=== PATIENT | female | born 1975 | race Caucasian/White ===

== ENCOUNTER 2023-06-07 08:24 | Emergency (ER) | payer BC, SELFPAY ==
--- NOTE | ~2023-06-07 | CT_ITS ---
EXAMINATION: CT abdomen pelvis wo con DATE: 06/07/2023 09:11 INDICATION: Hematuria. Right flank pain. TECHNIQUE: Computed tomography (CT) of the abdomen and pelvis was performed without intravenous contr ast. The dose-length product was 573.37 mGy-cm. Automated exposure control and iterative reconstructi on technique were employed. COMPARISON: None. FINDINGS: Lung bases are unremarkable. Heart size normal. No significant pleural or pericardial effus ion. 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 Gallbladder is mildly distended. The spleen, pancreas, ad renal glands are unremarkable. There is a 3-4 mm distal right ureteral stone, image 150. Mild hydrone phrosis. The spleen, pancreas is unremarkable. Left kidney is unremarkable. Nonobstructive bowel aura pierre. No acute osseous abnormality. There is mild bilateral asymmetric sacroiliitis. No acute osseous abnormality. IMPRESSION: 1. Distal right ureteral stone just proximal to the UVJ measuring 3-4 mm. Mild hydronephrosis. Reviewed, dictated and finalized at location A.
--- NOTE | ~2023-06-07 | XR_ITS ---
Supine and upright views of the abdomen Clinical history: Urolithiasis Findings: Bowel gas pattern is nonspecific. No evidence for obstruction or free air. Questionable fina nt visualization of 3 mm distal right ureteral stone, adjacent to a calcified pelvic phlebolith. Osse ous structures are intact. Impression: Questionable faint visualization of 3 mm distal right ureteral stone, adjacent to calcified pelvic ph lebolith. Reviewed, dictated and finalized at location . Impression: Questionable faint visualization of 3 mm distal right ureteral stone, adjacent to calcified pelvic phlebolith.
[2023-06-07 08:25] VITALS: BP 134/76; PULSE 98; RESP 20; TEMP 36.6; O2SAT 100
[2023-06-07 08:47] LABS: Basophils Absolute Auto 0.1 K/mm3 (0.0-0.1); Basophils Percent Auto 0.7 % (0.2-1.2); Eosinophils Absolute Auto 0.1 K/mm3 (0-0.3); Eosinophils Percent Auto 1.3 % (0-4.4); Hematocrit 40.7 % (37.0-47.0); Hemoglobin 12.7 g/dL (12.0-15.0); Immature Granulocyte Absolute 0.04 K/mm3 (0.00-0.031); Immature Granulocyte Percent A 0.6 % (0-0.5); Lymphocytes Absolute Auto 2.09 K/mm3 (0.9-3.2); Lymphocytes Percent Auto 29.6 % (18.3-44.2); Mean Corpuscular HGB Conc 31.2 g/dl (32-36); Mean Corpuscular Hemoglobin 27.7 pg (26-34); Mean Corpuscular Volume 88.9 fl (80-100); Mean Platelet Volume 9.1 fl (7.4-10.4); Monocytes Absolute Auto 0.4 K/mm3 (0.1-0.6); Monocytes Percent Auto 5.1 % (2.6-8.5); Neutrophils Absolute Auto 4.4 K/mm3 (1.3-6.7); Neutrophils Percent Auto 62.7 % (45.5-73.1); Platelet Count Result 315 k/mm3 (150-375); Red Blood Count 4.58 M/mm3 (4.2-5.4); Red Cell Distribution Width 13.2 % (11.5-14.5); White Blood Count 7.1 K/mm3 (4.5-10.0)
--- NOTE | 2023-06-07 08:50 | ED.BACK ---
HPI - Back Pain/Injury General Chief Complaint: Back Pain/Injury Stated Complaint: R flank pain Time Seen by Provider: 06/07/23 08:43 History of Present Illness HPI Narrative: 48-year-old female history of uterine fibroids presents to the emergency room with sudden onset of right lower back pain. States pain was present when she woke this morning. Denies any known injury or trauma. She states the pain is worse with certain movements. Took an ibuprofen with minimal pain relief. Patient denies any radiating pain, dysuria, nausea vomiting. Related Data Allergies Allergy/AdvReac Type Severity Reaction Status Date / Time No Known Allergies Allergy Verified 06/07/23 08:42 Review of Systems Review of Systems: CONSTITUTIONAL: Denies fever, chills, or sweats. EYES: Denies visual changes, redness, or discharge. ENT: Denies rhinorrhea, congestion, sore throat, or otalgia. CARDIOVASCULAR: Denies chest pain, palpitations, or edema. RESPIRATORY: Denies cough or dyspnea. GASTROINTESTINAL: Denies abdominal pain, nausea, vomiting, or diarrhea. GENITOURINARY: Denies dysuria or hematuria. SKIN: Denies rash or itching. MUSCULOSKELETAL: Per HPI NEUROLOGIC: Denies headache, numbness, dizziness, or weakness. PSYCHIATRIC: Denies anxiety or depression. Exam Narrative: GENERAL: Well-appearing, well-nourished, no physical limitations, and in no acute distress. HEAD: Normocephalic, atraumatic. EYES: Conjunctivae normal, PERRLA and EOMI. CHEST: Clear to auscultation. No respiratory distress. No wheezes rales or rhonchi. HEART: Regular rate and rhythm. No murmur heard. Normal peripheral pulses. ABDOMEN: Soft, nontender, nondistended, normal active bowel sounds. BACK: No CVA tenderness; No midline lumbar tenderness, step-offs, bony abnormality; FROM, - SLE bilaterally EXTREMITIES: Normal range of motion. No edema. No clubbing or cyanosis SKIN: Warm, dry, no rash. No noted wounds NEURO: No focal deficits. Alert and oriented x3. MAEW. CN's II-XI intact bilaterally, normal gait PSYCH: Cooperative. Normal mood and affect. Course Vital Signs Vital signs: Vital Signs Temperature 36.6 C 06/07/23 08:25 Pulse Rate 98 06/07/23 08:25 Respiratory Rate 20 06/07/23 08:25 Blood Pressure 134/76 06/07/23 08:25 Pulse Oximetry 100 06/07/23 08:25 Oxygen Delivery Room Air 06/07/23 08:25 Temperature 36.6 C 06/07/23 08:25 Pulse Rate 98 06/07/23 08:25 Respiratory Rate 20 06/07/23 08:25 Blood Pressure 134/76 06/07/23 08:25 Pulse Oximetry 100 06/07/23 08:25 Oxygen Delivery Room Air 06/07/23 08:25 MDM - Back Pain/Injury Lab Data 06/07/23 08:39 06/07/23 08:39 Labs: Lab Results 06/07/23 Range/Units 08:39 WBC 7.1 (4.5-10.0) K/mm3 RBC 4.58 (4.2-5.4) M/mm3 Hgb 12.7 (12.0-15.0) g/dL Hct 40.7 (37.0-47.0) % MCV 88.9 (80-100) fl MCH 27.7 (26-34) pg MCHC 31.2 L (32-36) g/dl RDW 13.2 (11.5-14.5) % Plt Count 315 (150-375) k/mm3 MPV 9.1 (7.4-10.4) fl Immature Gran % (Auto) 0.6 H (0-0.5) % Neut % (Auto) 62.7 (45.5-73.1) % Lymph % (Auto) 29.6 (18.3-44.2) % [place] % (Auto) 5.1 (2.6-8.5) % Eos % (Auto) 1.3 (0-4.4) % Baso % (Auto) 0.7 (0.2-1.2) % Lymph # (Auto) 2.09 (0.9-3.2) K/mm3 [place] # (Auto) 0.4 (0.1-0.6) K/mm3 Eos # (Auto) 0.1 (0-0.3) K/mm3 Baso # (Auto) 0.1 (0.0-0.1) K/mm3 Abs Immat Gran (auto) 0.04 H (0.00-0.031) K/mm3 Absolute Neuts (auto) 4.4 (1.3-6.7) K/mm3 Absolute Nucleated RBC 0.000 (0.0-0.012) K/mm3 Nucleated RBC % 0.0 (0.0-0.2) % Sodium 140 (137-145) mmol/L Potassium 3.6 (3.4-5.0) mmol/L Chloride 107 (98-107) mmol/L Carbon Dioxide 26 (22-30) mmol/L Anion Gap 7 (4-12) mmol/L BUN 19 H (7-17) mg/dL Creatinine 0.80 (0.7-1.0) mg/dL Estim Creat Clear Calc 72 ml/min Estimated GFR > 60 (59 - ) Glucose 123 H (65-110) mg/dL Calcium 9.5 (8.4-10.2) mg/dL Total Bilirubin 0.
[2023-06-07 08:55] LABS: Appearance Urine Cloudy (Clear); Bacteria Urine Rare /hpf; Bilirubin Urine Negative (Negative); Blood Urine 1+ (Negative); Color Urine Yellow (Yellow); Glucose Urine UA Negative (Negative); Ketones Urine Negative (Negative); Leukocyte Esterase Ur Negative LEU/UL (Negative); Nitrate Urine Negative (Negative); Non Pathogenic Casts 0-2; Protein Urine Negative (Negative); Squamous Epithelial Cell Urine Moderate /hpf (Few); Urobilinogen Urine 0.2 mg/dL (<2.0); WBC Urine 0-5 /hpf (0-3); pH Urine 5.5 (5.0-9.0)
[2023-06-07 08:56] LABS: Add Urine Microscopic? YES; Specific Grav Ur 1.031 (1.001-1.035)
[2023-06-07 09:07] LABS: Alanine Aminotransferase 15 U/L (6-35); Albumin Level 4.7 g/dL (3.5-5.1); Alkaline Phosphatase 66 U/L (38-126); Anion Gap 7 mmol/L (4-12); Aspartate Amino Transferase 24 U/L (14-36); Bilirubin,Total 0.6 mg/dL (0.2-1.3); Blood Urea Nitrogen 19 mg/dL (7-17); Calcium 9.5 mg/dL (8.4-10.2); Carbon Dioxide 26 mmol/L (22-30); Chloride 107 mmol/L (98-107); Estimated CRCL calculation 72 ml/min; Estimated Glomerular Filt Rate > 60; Glucose 123 mg/dL (65-110); Potassium 3.6 mmol/L (3.4-5.0); Sodium 140 mmol/L (137-145)
[2023-06-07] MEDS: KETOROLAC 30 MG/ML VIAL (*BKC) IV PUSH (09:53)
[2023-06-07] MEDS: SODIUM CHLORIDE 0.9% IV 1,000 ML 999 ML IV CONT (09:54)
== END 2023-06-07 11:45 | disposition home or self-care (01) ==
PROVIDERS: Emergency Medicine; Emergency Provider Nurse Practitioner Family; Referring Provider Emergency Medicine
DX: N13.2 Hydronephrosis with renal and ureteral calculous obstruction (principal)
CPT/HCPCS: 36415; 74018; 74176; 80053; 81001; 81025; 85025; 96361; 96374; 99284; J1885; J7030

== ENCOUNTER 2023-06-08 21:40 | Emergency (ER) | payer BC, SELFPAY ==
--- NOTE | ~2023-06-08 | CT_ITS ---
EXAMINATION: CT abdomen pelvis wo con DATE: 06/08/2023 22:51 INDICATION: Flank pain. TECHNIQUE: Computed tomography (CT) of the abdomen and pelvis was performed without intravenous contr ast. Automated exposure control and iterative reconstruction technique were employed. The dose-length product was 515.75 mGy-cm. COMPARISON: CT abdomen and pelvis 06/07/23 FINDINGS: The visualized portions of the lung bases demonstrate minimal atelectasis. No pleural effus ion. The heart size is normal. No pericardial effusion. There is a 16 mm mass of fat in the liver, li juancarlos a lipoma. The gallbladder, spleen, pancreas, adrenal glands, and left kidney are normal. There i s mild right hydronephrosis. There is a 3 mm stone in distal right ureter. There are no dilated loops of bowel. The appendix is normal. There are no pathologically enlarged lymph nodes. There is no free intraperitoneal fluid. There is mild thoracic and lumbar spondylosis. IMPRESSION: 1. 3 mm stone in distal right ureter with mild right hydronephrosis. Reviewed, dictated and finalized at location E.
[2023-06-08 21:55] VITALS: BP 145/76; PULSE 112; RESP 18; TEMP 36.4; O2SAT 99
[2023-06-08 22:28] LABS: Basophils Percent Auto 0.4 % (0.2-1.2); Eosinophils Absolute Auto 0.1 K/mm3 (0-0.3); Hematocrit 36.9 % (37.0-47.0); Hemoglobin 11.8 g/dL (12.0-15.0); Immature Granulocyte Absolute 0.03 K/mm3 (0.00-0.031); Immature Granulocyte Percent A 0.3 % (0-0.5); Lymphocytes Absolute Auto 1.95 K/mm3 (0.9-3.2); Lymphocytes Percent Auto 21.5 % (18.3-44.2); Mean Corpuscular Hemoglobin 27.9 pg (26-34); Mean Corpuscular Volume 87.2 fl (80-100); Mean Platelet Volume 9.1 fl (7.4-10.4); Monocytes Absolute Auto 0.5 K/mm3 (0.1-0.6); Monocytes Percent Auto 5.5 % (2.6-8.5); Neutrophils Absolute Auto 6.5 K/mm3 (1.3-6.7); Neutrophils Percent Auto 71.3 % (45.5-73.1); Platelet Count Result 277 k/mm3 (150-375); Red Blood Count 4.23 M/mm3 (4.2-5.4); Red Cell Distribution Width 13.3 % (11.5-14.5); White Blood Count 9.1 K/mm3 (4.5-10.0)
[2023-06-08 22:30] LABS: Appearance Urine Clear (Clear); Bilirubin Urine Negative (Negative); Blood Urine Negative (Negative); Color Urine Yellow (Yellow); Glucose Urine UA Negative (Negative); Ketones Urine Negative (Negative); Leukocyte Esterase Ur Negative LEU/UL (Negative); Nitrate Urine Negative (Negative); Protein Urine Negative (Negative); Specific Grav Ur 1.015 (1.001-1.035); Urobilinogen Urine 0.2 mg/dL (<2.0)
[2023-06-08 22:33] LABS: Add Urine Microscopic? NO
[2023-06-08 22:40] LABS: Alanine Aminotransferase 14 U/L (6-35); Albumin Level 4.3 g/dL (3.5-5.1); Alkaline Phosphatase 60 U/L (38-126); Anion Gap 6 mmol/L (4-12); Aspartate Amino Transferase 21 U/L (14-36); Bilirubin,Total 0.6 mg/dL (0.2-1.3); Blood Urea Nitrogen 16 mg/dL (7-17); Calcium 9.2 mg/dL (8.4-10.2); Carbon Dioxide 27 mmol/L (22-30); Chloride 102 mmol/L (98-107); Estimated CRCL calculation 49 ml/min; Estimated Glomerular Filt Rate 44; Glucose 122 mg/dL (65-110); Potassium 3.6 mmol/L (3.4-5.0); Sodium 135 mmol/L (137-145)
--- NOTE | 2023-06-08 23:26 | ED_ITS ---
HPI - Female Genitourinary General Chief complaint: Urogenital-Female Stated complaint: flank pain Time Seen by Provider: 06/08/23 22:14 Source: patient and old records reviewed Mode of arrival: ambulatory Limitations: no limitations History of Present Illness HPI Narrative: Patient is a 48-year-old female who presents the ED with report of shakiness and lightheadedness. Patient reports using the ED yesterday and diagnosed with a 3- 4 mm right-sided UVJ kidney stone. Was prescribed Flomax and hydrocodone for t he pain. Last took hydrocodone around 4:30 p.m. today. States around 8:00 p.m., she began feeling very shaky, lightheaded/woozy, and became nauseous. She then prompted here. Patient feeling improved currently. She does complain of a headache currently. States she does have some persistent pain in her right side, but tolerable. Denies vomiting, fevers, difficulty urinating, hematuria. Patient mentioned she is sensitive to pain medication and has had similar shaking behavior with narcotic pain medication in the past. Related Data Allergies Allergy/AdvReac Type Severity Reaction Status Date / Time No Known Allergies Allergy Verified 06/08/23 21:58 Review of Systems Review of Systems: CONSTITUTIONAL: Denies fever, chills, or sweats. GASTROINTESTINAL: See HPI. GENITOURINARY: Denies dysuria or hematuria. MUSCULOSKELETAL: See HPI. NEUROLOGIC: See HPI. All systems reviewed & are unremarkable except as noted in HPI and below Exam Narrative: GENERAL: Well appearing, well-nourished, non-toxic, in no acute distress. HEAD: Normocephalic, atraumatic. RESPIRATORY: Airway patent, respirations nonlabored. Clear to auscultation bilaterally, no rales, rhonchi, wheezing. CARDIOVASCULAR: Regular rate and rhythm without murmurs, rubs, or gallops. ABDOMINAL: Soft, no significant tenderness throughout abdomen, nondistended. Normoactive BS. MUSCULOSKELETAL: Moves all extremities. No gross deformities. SKIN: Warm, dry, normal color. NEURO: A&O X3. Speech clear. Cranial nerves II-XII grossly intact. Steady gait. No ataxic movements. No focal deficits. PSYCHIATRIC: Appropriate mood and affect. Normal interaction. Course Vital Signs Vital signs: Vital Signs Temperature 97.6 F 06/08/23 21:55 Pulse Rate 112 H 06/08/23 21:55 Respiratory Rate 18 06/08/23 21:55 Blood Pressure 145/76 H 06/08/23 21:55 Pulse Oximetry 99 06/08/23 21:55 Oxygen Delivery Room Air 06/08/23 21:55 Temperature 97.6 F 06/08/23 21:55 Pulse Rate 112 H 06/08/23 21:55 Respiratory Rate 18 06/08/23 21:55 Blood Pressure 145/76 H 06/08/23 21:55 Pulse Oximetry 99 06/08/23 21:55 Oxygen Delivery Room Air 06/08/23 21:55 MDM - Female Genitourinary MDM Narrative Medical decision making narrative: Patient presented to ED with shakiness, lightheadedness, headache, diagnosed with right-sided kidney stone yesterday. [place] as though symptoms may be related to pain medications as patient has had similar reactions in the past. No true allergic reaction signs or symptoms. No evidence of anaphylaxis or airway compromise. No hives, rash, itching, difficulty breathing or swelling. Vitals are stable upon my evaluation, patient was initially tachycardic upon arrival to the ED, though this was resolved by the time of my evaluation. Patient feeling improved by the time of my evaluation. Laboratory studies are unremarkable. No leukocytosis. CMP with creatinine of 1.3, appears to be mildly increased from labs drawn yesterday. Patient given fluids in the ED. Stable electrolytes. Urinalysis is clear. CT abdomen pelvis was again obtained and shows persistent distal right ureteral stone, mild hydronephrosis, consistent with findings yesterday. Will treat for headache, provide fluids, re-evaluated. Patient feeling much better with supportive therapy. Symptoms improved. Able to tolerate p.o. intake. Feels she to be discharged home. Advised patient to avoid Adrian if possible, recommended she take Tylenol and ibuprofen around the clock as needed for pain. She has appointment with Urology on Sunday. Advised patient to continue Flomax and stay well hydrated at home. Discussed very strict return precautions. She voiced understanding and feels comfortable going home. Discharged in stable condition. Vital signs stable at time of discharge. Tachycardia resolved with fluids. Medical Records Attestation: I reviewed the patient's medical records. Lab Data Attestation: I reviewed the patient's lab results. 06/08/23 22:17 06/08/23 22:17 Labs: Lab Results 06/08/23 06/08/23 Range/Units 22:16 22:17 WBC 9.1 (4.5-10.0) K/mm3 RBC 4.23 (4.2-5.4) M/mm3 Hgb 11.8 L (12.0-15.0) g/dL Hct 36.9 L (37.0-47.0) % MCV 87.2 (80-100) fl MCH 27.9 (26-34) pg MCHC 32.0 (32-36) g/dl RDW 13.3 (11.5-14.5) % Plt Count 277 (150-375) k/mm3 MPV 9.1 (7.4-10.4) fl Immature Gran % (Auto) 0.3 (0-0.5) % Neut % (Auto) 71.3 (45.5-73.1) % Lymph % (Auto) 21.5 (18.3-44.2) % [place] % (Auto) 5.5 (2.6-8.5) % Eos % (Auto) 1.0 (0-4.4) % Baso % (Auto) 0.4 (0.2-1.2) % Lymph # (Auto) 1.95 (0.9-3.2) K/mm3 [place] # (Auto) 0.5 (0.1-0.6) K/mm3 Eos # (Auto) 0.1 (0-0.3) K/mm3 Baso # (Auto) 0.0 (0.0-0.1) K/mm3 Abs Immat Gran (auto) 0.03 (0.00-0.031) K/mm3 Absolute Neuts (auto) 6.5 (1.3-6.7) K/mm3 Absolute Nucleated RBC 0.000 (0.0-0.012) K/mm3 Nucleated RBC % 0.0 (0.0-0.2) % Sodium 135 L (137-145) mmol/L Potassium 3.6 (3.4-5.0) mmol/L Chloride 102 (98-107) mmol/L Carbon Dioxide 27 (22-30) mmol/L Anion Gap 6 (4-12) mmol/L BUN 16 (7-17) mg/dL Creatinine 1.30 H (0.7-1.0) mg/dL Estim Creat Clear Calc 49 ml/min Estimated GFR 44 L (59 - ) Glucose 122 H (65-110) mg/dL Calcium 9.2 (8.4-10.2) mg/dL Magnesium 2.1 (1.6-2.3) mg/dL Total Bilirubin 0.6 (0.2-1.3) mg/dL AST 21 (14-36) U/L ALT 14 (6-35) U/L Alkaline Phosphatase 60 (38-126) U/L Total Protein 7.0 (6.3-8.2) g/dL Albumin 4.3 (3.5-5.1) g/dL Urine Color Yellow (Yellow) Urine Appearance Clear (Clear) Urine pH 6.0 (5.0-9.0) Ur Specific [place] 1.015 (1.001-1.035) Urine Protein Negative (Negative) mg/dL Urine Glucose (UA) Negative (Negative) mg/dL Urine Ketones Negative (Negative) mg/dL Ur Blood (Man) Negative (Negative) Urine Nitrate Negative (Negative) Urine Bilirubin Negative (Negative) Urine Urobilinogen 0.2 (<2.0) mg/dL Leukocyte Esterase Rfl Negative (Negative) NKECHI/UL Imaging Data Attestation: I personally reviewed and interpreted this imaging study as follows: Radiologist's impression: ITS Impressions Abdomen/Pelvis CT 06/08/23 23:01 IMPRESSION: 1. 3 mm stone in distal right ureter with mild right hydronephrosis. Discharge Plan Discharge Clinical Impression: Calculus of distal right ureter, Shakiness, Lightheadedness Patient Disposition: Home, Self-Care Condition: Stable Instructions: Antibiotic Form, Kidney Stones (ED), Lightheadedness (ED) Additional Instructions: Increase fluid intake and stay well hydrated at home. Continue Flomax daily. Recommend continuing Tylenol and ibuprofen as needed for pain. You can take up to 600 mg of ibuprofen and 1000 mg of Tylenol every 6 hours. Take Adrian as needed for more severe pain. Zofran as needed for further nausea. Follow-up with urology for further evaluation. Return to the ED if you experience worsening or severe pain, severe dizziness or lightheadedness, passing out, unable to keep down food or drink, fevers of any kind, difficulty urinating, or any other symptoms of concern Prescriptions: New ondansetron 4 mg tablet,disintegrating 4 mg PO Q8H PRN (Reason: nausea and vomiting) Qty: 10 0RF No Action tamsulosin [Flomax] 0.4 mg capsule 0.4 mg PO DAILY Qty: 7 0RF hydrocodone-acetaminophen 5-325 mg tablet 1 tablet PO Q8H PRN (Reason: pain) Qty: 12 0RF Follow-up/Referrals: PHYSICIAN,[employer] [Primary Care Provider] - Time of Disposition: 00:39
[2023-06-08 23:29] LABS: Magnesium 2.1 mg/dL (1.6-2.3)
[2023-06-08] MEDS: ACETAMINOPHEN 500 MG TABLET 1000 MG PO (23:36)
[2023-06-08] MEDS: ONDANSETRON INJ 4 MG/2 ML VIAL IV PUSH (23:36)
[2023-06-08] MEDS: KETOROLAC 30 MG/ML VIAL (*BKC) IV PUSH (23:36)
[2023-06-08] MEDS: SODIUM CHLORIDE 0.9% IV 1,000 ML 999 ML IV CONT (23:37)
[2023-06-09 01:00] VITALS: BP 136/88; PULSE 98; RESP 15; O2SAT 98
== END 2023-06-09 01:00 | disposition home or self-care (01) ==
PROVIDERS: Preventive Medicine Aerospace Medicine; Emergency Provider Physician Assistant
DX: N13.2 Hydronephrosis with renal and ureteral calculous obstruction (principal); R42 Dizziness and giddiness; R25.8 Other abnormal involuntary movements
CPT/HCPCS: 36415; 74176; 80053; 81003; 83735; 85025; 96361; 96374; 96375; 99284; A9270; J1885; J2405; J7030

== ENCOUNTER 2023-06-12 13:02 | Outpatient (CLI) | payer BC, SELFPAY ==
--- NOTE | ~2023-06-12 | XR_ITS ---
Supine and upright views of the abdomen Clinical history: Right ureteral stone COMPARISON: 06/07/2023 Findings: Bowel gas pattern is nonspecific. No evidence for obstruction or free air. No abnormal mass lesion or calcification is seen. Calcified pelvic phleboliths noted. Osseous structures are intact. Impression: No definite ureteral stones seen currently. Reviewed, dictated and finalized at [facility]. Impression: No definite ureteral stones seen currently.
== END 2023-06-12 13:03 | disposition home or self-care (01) ==
LOC: ANHIMG 13:04
PROVIDERS: Visit Provider Urology
DX: N20.1 Calculus of ureter (principal)
CPT/HCPCS: 74018

== ENCOUNTER 2023-06-13 13:31 | Outpatient (CLI) | payer BC, SELFPAY ==
--- NOTE | ~2023-06-13 | CT_ITS ---
EXAMINATION: CT abdomen pelvis wo con DATE: 06/13/2023 13:43 INDICATION: Right flank pain TECHNIQUE: Computed tomography (CT) of the abdomen and pelvis was performed without intravenous contr ast. Automated exposure control and iterative reconstruction technique were employed. Exam dose: 231 .10 mGy-cm total exam DLP. COMPARISON: June 12, 2023 KUB June 08, [address] abdomen pelvis FINDINGS: The lung bases are clear. Normal heart size. No pericardial or pleural effusion. Approximately 1.6 cm benign fatty lesion of the lower aspect of the right hepatic lobe. The liver, sp fani, pancreas, adrenal glands and kidneys are otherwise unremarkable on this limited noncontrast exa mination. No ureteral calculus is noted but there is a small calculus in the dependent aspect of the inferior r ight urinary bladder. No bladder wall thickening. No hydroureteronephrosis. Normal caliber of the abdominal aorta. No intraperitoneal or retroperitoneal or pelvic mass lesion or adenopathy or ascites. Included skeletal structures are unremarkable. IMPRESSION: Small stone in the dependent aspect of the urinary bladder; no renal or ureteral calculu s or hydroureteronephrosis Reviewed, dictated and finalized at Location [facility]. Reviewed, dictated and finalized at location A. IMPRESSION: Small stone in the dependent aspect of the urinary bladder; no hugh al or ureteral calculus or hydroureteronephrosis
== END 2023-06-13 13:32 | disposition home or self-care (01) ==
PROVIDERS: Visit Provider Urology
DX: N20.1 Calculus of ureter (principal)
CPT/HCPCS: 74176

== ENCOUNTER 2023-08-21 10:36 | Outpatient (CLI) | payer BC, SELFPAY ==
--- NOTE | ~2023-08-21 | MM_ITS ---
EXAMINATION: MM screening [facility] BI w alona HISTORY: Screening mammogram TECHNIQUE: Craniocaudal and mediolateral oblique 3-D tomosynthesis images were obtained and synthetic 2-D images were generated. CAD analysis was submitted and interpreted. COMPARISON: 03/22/2018 BREAST PARENCHYMAL COMPOSITION:Not Dense. There are scattered areas of fibroglandular density. FINDINGS: There are multiple circumscribed and lobulated low-density masses bilaterally, several whic h may be skin lesions. No suspicious mass, calcification, or architectural distortion are identified in either breast to suggest malignancy. There has been no suspicious interval change. IMPRESSION: No mammographic evidence of malignancy. Recommend routine screening mammography in one year. BI-RADS Category 2: Benign finding(s). Reviewed, dictated and finalized at location .
== END 2023-08-21 10:37 ==
LOC: MICIMG 10:37
PROVIDERS: PCP Nurse Practitioner Obstetrics & Gynecology; Visit Provider Nurse Practitioner Obstetrics & Gynecology
DX: Z12.31 Encounter for screening mammogram for malignant neoplasm of breast (principal)
CPT/HCPCS: 77063; 77067